=== PATIENT | male | born 1980 | race Caucasian/White ===

== ENCOUNTER 2017-11-06 11:57 | Day surgery (SDC) | payer OTHER ==
[~2017-11-06 11:57] MED LIST: CEFAZOLIN 2 GM/50 ML (PMX) 50 ML IVPB; SOD CHLORIDE 0.9% 1,000 ML IV
[2017-11-06 13:34] LABS: ADD MAN DIFF? NO
[2017-11-06 13:37] LABS: BASOPHILS % 0.6 % (0.0-2.0); EOSINOPHILS # 0.1 10^3/ul (0.0-0.5); EOSINOPHILS % 2.6 % (0.0-7.0); HEMATOCRIT 38.3 % (42.0-52.0); HEMOGLOBIN 12.9 g/dl (14.0-18.0); LYMPHOCYTES # 1.2 10^3/ul (0.8-2.9); LYMPHOCYTES % 26.6 % (15.0-51.0); MEAN CORPUSCULAR HEMOGLOBIN 30.8 pg (29.0-33.0); MEAN CORPUSCULAR HGB CONC 33.7 g/dl (32.0-37.0); MEAN CORPUSCULAR VOLUME 91.4 fl (82.0-101.0); MEAN PLATELET VOLUME 9.9 fl (7.4-10.4); MONOCYTE # 0.4 10^3/ul (0.3-0.9); MONOCYTES % 8.4 % (0.0-11.0); NEUTROPHIL # 2.8 10^3/ul (1.6-7.5); NEUTROPHILS % 61.6 % (39.0-77.0); PLATELET COUNT 152 10^3/UL (140-415); RED BLOOD COUNT 4.19 10^6/ul (4.70-6.10); RED CELL DISTRIBUTION WIDTH 12.1 % (11.5-14.5)
[2017-11-06 13:37] LABS: WHITE BLOOD COUNT 4.6 10^3/ul (4.8-10.8)
[2017-11-06 13:40] LABS: INR 0.97
[2017-11-06 13:41] LABS: PARTIAL THROMBOPLASTIN TIME 29.3 Sec (25.0-35.0)
[2017-11-06 13:43] LABS: ANION GAP 12 (8-16); CARBON DIOXIDE 27 mmol/L (21-31); CHLORIDE 106 mmol/L (97-110); GLUCOSE 88 mg/dl (70-220)
[2017-11-06 13:47] LABS: BLOOD UREA NITROGEN 16 mg/dl (7-20); CALCIUM 9.3 mg/dl (8.4-10.2); CREATININE 1.02 mg/dl (0.61-1.24); POTASSIUM 4.1 mmol/L (3.5-5.1); SODIUM 141 mmol/L (135-144)
[2017-11-06] MEDS ORDERED: BUPIVACAINE 0.25%/EPI (SDV) 30 ML INJ (15:37)
[2017-11-06] MEDS ORDERED: CEFAZOLIN 1 GM INJ ×2 (15:40→15:50)
[2017-11-06] MEDS ORDERED: PROPOFOL 20 ML (15:40)
[2017-11-06] MEDS ORDERED: MIDAZOLAM 1 MG/ML 2 ML INJ (15:40)
[2017-11-06] MEDS ORDERED: METOCLOPRAMIDE 10 MG INJ (15:41)
[2017-11-06] MEDS ORDERED: ONDANSETRON 4 MG INJ (15:41)
[2017-11-06] MEDS ORDERED: FENTAnyl 50 MCG/ML VIAL (15:41)
[2017-11-06] MEDS ORDERED: KETOROLAC 30 MG INJ (15:50)
[2017-11-06] MEDS ORDERED: ONDANSETRON 4 MG INJ IV (16:00)
[2017-11-06] MEDS ORDERED: HYDROmorphONE (0.2 MG/ML) 10ML SYG IV ×3 (16:00)
[2017-11-06] MEDS ORDERED: OXYCODONE/ACETAMINOPHEN (5/325) TAB PO ×2 (16:00)
[2017-11-06] MEDS: BUPIVACAINE 0.25% (MPF) 30 ML INJ (16:17)
[2017-11-06] MEDS ORDERED: HYDROCODONE/APAP (5/325) TAB PO (17:00)
== END 2017-11-06 18:27 | disposition home or self-care (01) ==
LOC: SDS 11:57
DX: D17.21 Benign lipomatous neoplasm of skin and subcutaneous tissue of right arm (principal)
CPT/HCPCS: 14021; 80048; 85025; 85610; 85730; 88307